=== PATIENT | female | born 1945 | race African-American/Black ===

== ENCOUNTER 2016-08-31 16:06 | Emergency (ER) | payer OTHER ==
[~2016-08-31] VITALS: Wt 71.0 kg
[2016-08-31] MEDS ORDERED: NITROGLYCERIN 2% 1 GM OINT PKT TD STA (17:48)
[2016-08-31 18:27] LABS: ADD SCAN DIFF NO
[2016-08-31 18:31] LABS: BASOPHILS % 0.5 % (0.0-2.0); EOSINOPHILS # 0.1 10^3/ul (0.0-0.5); EOSINOPHILS % 0.8 % (0.0-7.0); HEMATOCRIT 36.6 % (37.0-47.0); HEMOGLOBIN 12.4 g/dl (12.0-16.0); LYMPHOCYTES # 2.2 10^3/ul (0.8-2.9); MEAN CORPUSCULAR HEMOGLOBIN 33.5 pg (29.0-33.0); MEAN CORPUSCULAR HGB CONC 33.9 g/dl (32.0-37.0); MEAN CORPUSCULAR VOLUME 98.9 fl (82.0-101.0); MEAN PLATELET VOLUME 8.9 fl (7.4-10.4); MONOCYTE # 0.6 10^3/ul (0.3-0.9); MONOCYTES % 8.7 % (0.0-11.0); NEUTROPHIL # 4.4 10^3/ul (1.6-7.5); NEUTROPHILS % 59.9 % (39.0-77.0); PLATELET COUNT 242 10^3/UL (140-415); WHITE BLOOD COUNT 7.3 10^3/ul (4.8-10.8)
[2016-08-31 18:41] LABS: INR 0.92; PROTIME 12.4 Sec (12.2-14.2)
[2016-08-31] MEDS ORDERED: HYDROmorphONE 1 MG/ML SYG IV STA (18:44)
[2016-08-31] MEDS ORDERED: SOD CHLORIDE 0.9% 500 ML IV STA (18:44)
[2016-08-31 18:46] LABS: CHLORIDE 106 mmol/L (97-110)
[2016-08-31 18:47] LABS: POTASSIUM 3.8 mmol/L (3.5-5.1); SODIUM 144 mmol/L (135-144)
[2016-08-31 18:49] LABS: CREATININE 0.83 mg/dl (0.44-1.00)
[2016-08-31 18:50] LABS: ANION GAP 15 (8-16); BLOOD UREA NITROGEN 20 mg/dl (7-20); CALCIUM 9.4 mg/dl (8.4-10.2); CARBON DIOXIDE 27 mmol/L (21-31); GLUCOSE 131 mg/dl (70-220)
--- NOTE | 2016-08-31 18:58 | RADRPT ---
PROCEDURE: XR Chest. CLINICAL INDICATION: Chest pain. TECHNIQUE: Single frontal view of the chest was obtained COMPARISON: None FINDINGS: There are atherosclerotic calcifications in the aortic arch. There are degenerative osteophytes in the thoracic spine. The soft tissues are generous. The heart, pulmonary vasculature, lung zavala an d pleural spaces are normal. IMPRESSION: 1. Atherosclerosis of the aortic arch. 2. Spondylosis of the thoracic spine. 3. No evidence of active cardiopulmonary disease. RPTAT:AAJJ Physician Porsche Date Time Electronically viewed and signed by Daniel Mays Physician on 08/31/2016 18:57 GEE/
[2016-08-31] MEDS ORDERED: ACETAMINOPHEN 325 MG TAB PO ONE (19:00)
[2016-08-31 19:05] LABS: TROPONIN-I < 0.012 ng/ml (0.00-0.12)
[2016-08-31 19:35] VITALS: BP 172/83; PULSE 75; RESP 18; TEMP 98.6
[2016-08-31] MEDS ORDERED: IBUP-1542 PO (19:42)
--- NOTE | 2016-08-31 19:44 | ERD ---
ER Documentation Chief Complaint Date/Time DATE: 08/31/16 TIME: 19:43 Chief Complaint CHEST PAIN SINCE THIS MORNING HPI Patient is a 7-year-old female with coronary disease and hypertension who presents with chest pain. The chest pain is midsternal and radiates down her left arm. She called [facility] and they told her to go to the urgent care. She was having shortness of breath as well. She had high blood pressure. She tried nitroglycerin 3 times and also took 3 baby aspirin. She said that she had a cath done about a year ago. The pain comes and goes. Upon review of old medical records this the patient's first visit to the ER. ROS All systems reviewed and are negative except as per history of present illness. Medications Home Meds Active Scripts Ibuprofen* (Motrin*) 600 Mg Tab, 600 MG PO Q6H Y for PAIN AND OR ELEVATED TEMP, #30 TAB Prov:ANGELIKA ASHTON MD 08/31/16 Allergies Allergies: Coded Allergies: Penicillins (Verified Allergy, Intermediate, 08/31/16) morphine (Verified Allergy, Intermediate, 08/31/16) PMhx/Soc Positive for coronary disease and hypertension although Done in February was negative FmHx Family History: coronary disease Physical Exam Vitals Vital Signs Date Time Temp Pulse Resp B/P Pulse Ox O2 Delivery O2 Flow Rate FiO2 08/31/16 19:35 98.6 75 18 172/83 100 Room Air 08/31/16 16:09 98.0 86 18 227/102 99 Physical Exam Const: No acute distress Head: Atraumatic Eyes: Normal Conjunctiva ENT: Normal External Ears, Nose and Mouth. Neck: Full range of motion..~ No meningismus. Resp: Clear to auscultation bilaterally Cardio: Regular rate and rhythm, no murmurs Abd: Soft, non tender, non distended. Normal bowel sounds Skin: No petechiae or rashes Back: No midline or flank tenderness Ext: No cyanosis, or edema Neur: Awake and alert Psych: Normal Mood and Affect Result Diagram: 08/31/16181408/31/161814 Results 24 hrs Laboratory Tests Test 08/31/16 18:15 White Blood Count 7.310^3/ul Red Blood Count 3.7010^6/ul Hemoglobin 12.4g/dl Hematocrit 36.6% Mean Corpuscular Volume 98.9fl Mean Corpuscular Hemoglobin 33.5pg Mean Corpuscular Hemoglobin Concent 33.9g/dl Red Cell Distribution Width 13.0% Platelet Count 08253^3/UL Mean Platelet Volume 8.9fl Neutrophils % 59.9% Lymphocytes % 30.0% Monocytes % 8.7% Eosinophils % 0.8% Basophils % 0.5% Nucleated Red Blood Cells % 0.0/100WBC Neutrophils # 4.410^3/ul Lymphocytes # 2.210^3/ul Monocytes # 0.610^3/ul Eosinophils # 0.110^3/ul Basophils # 0.010^3/ul Nucleated Red Blood Cells # 0.010^3/ul Prothrombin Time 12.4Sec Prothrombin Time Ratio 1.0 INR International Normalized Ratio 0.92 Activated Partial Thromboplast Time 30.0Sec Sodium Level 144mmol/L Potassium Level 3.8mmol/L Chloride Level 106mmol/L Carbon Dioxide Level 27mmol/L Anion Gap 15 Blood Urea Nitrogen 20mg/dl Creatinine 0.83mg/dl Glucose Level 131mg/dl Calcium Level 9.4mg/dl Troponin I < 0.012ng/ml Current Medications Medications (Trade) Dose Ordered Sig/Kristin Route PRN Reason Start Time Stop Time Status Last Admin Dose Admin Nitroglycerin (Nitroglycerin 2% Oint) 1 inch ONCE STAT TD 08/31/16 17:48 08/31/16 17:49 DC 08/31/16 18:20 Acetaminophen (Tylenol Tab) 650 mg ONCE ONCE PO 08/31/16 19:00 08/31/16 19:01 DC 08/31/16 18:43 Hydromorphone HCl 1 mg 1 mg ONCE STAT IV 08/31/16 18:44 08/31/16 18:45 DC 08/31/16 18:52 Sodium Chloride (NS) 500 ml @ 500 mls/hr Q1H STAT IV 08/31/16 18:44 08/31/16 19:43 DC 08/31/16 18:46 Procedures/MDM EKG read by me: Rate/Rhythm: Regular rate and rhythm at a rate of 85 Intervals: Normal Impression: No evidence of ischemia or arrhythmia Chest x-ray negative for pneumonia or pneumothorax per radiology. Patient is a 70-year-old female presents with chest pain. I spoke with the doctor at [facility] who said that she had a negative cardiac cath in February and the patient also has a history of chronic pain. She has an allergy to morphine but said that she "wanted the other medicine that works for pain". Her troponin is negative. Her EKG is normal. Chest x-ray shows no pneumonia or pneumothorax. I spoke with Dr. Arzola for transfer but he asked if we could discharge the patient. It is Dr. Jeffers from [facility]. I did ask if that doctor could arrange for close cardiology follow-up within 48 hours. He said that he can. The patient will be discharged home with a prescription for ibuprofen. The patient can return for any worsening symptoms. At this point I doubt acute coronary syndrome, pneumonia, pneumothorax, pulmonary embolism, or aortic dissection. Departure Diagnosis: Primary Impression: Chest pain Chest pain type: unspecified Qualified Code: R07.9 - Chest pain, unspecified type Condition: Fair Patient Instructions: Chest Pain, Uncertain Cause Referrals: JODI WHALEY (PCP) Additional Instructions: Call your primary care doctor TOMORROW for an appointment during the next 1-2 days.See the doctor sooner or return here if your condition worsens before your appointment time. ANGELIKA ASHTON MD Aug 31, 2016 19:43
[2016-08-31] MEDS ORDERED: AMLO-147 PO (20:04)
[2016-08-31] MEDS ORDERED: AMLO5TAB4 PO (20:12)
[2016-08-31] MEDS ORDERED: ATOR20TA38 PO (20:12)
[2016-08-31] MEDS ORDERED: LISI40TA9 PO (20:12)
== END 2016-08-31 20:20 | disposition home or self-care (01) ==
LOC: E/R 16:06
DX: R07.9 Chest pain, unspecified (principal)
CPT/HCPCS: 71010; 80048; 84484; 85025; 85610; 85730; 96374; 99285; J1170; J7040; 93005